=== PATIENT | male | born 1980 | race Caucasian/White ===

== ENCOUNTER 2018-04-20 10:13 | Emergency (ER) | payer OTHER ==
[2018-04-20] MEDS: IBUPROFEN 800 MG TAB PO (10:55)
== END 2018-04-20 12:19 | disposition home or self-care (01) ==
LOC: FTE 10:13
DX: S89.92XA Unspecified injury of left lower leg, initial encounter (principal); W22.8XXA Striking against or struck by other objects, initial encounter; Y92.89 Other specified places as the place of occurrence of the external cause
CPT/HCPCS: 73562; 73590; 73610; 99283-25